=== PATIENT | female | born 1955 | race Caucasian/White ===

== ENCOUNTER 2019-07-24 05:55 | Day surgery (SDC) | payer MEDICARE, MEDICAID ==
[~2019-07-24] VITALS: Ht 157.5 cm; Wt 69.9 kg
[2019-07-24] VITALS (7 sets, daily range): BP systolic 119–165; BP diastolic 52–72
[2019-07-24] MEDS ORDERED: Avastin 10mg Inj IVITRE ONE (06:00)
[2019-07-24] MEDS ORDERED: Pred Forte 1% Opth Susp 1ml LEFT EYE SCH (06:00)
[2019-07-24] MEDS ORDERED: Phenylephrine 2.5% Op 2ml Soln ONE (06:08)
[2019-07-24] MEDS ORDERED: Cyclopentolate 1% Opth Sol 2ml ONE (06:08)
[2019-07-24] MEDS ORDERED: Flurbiprofen 0.03% Opth Sol 2.5ml ONE (06:08)
[2019-07-24] MEDS ORDERED: Vigamox Opth Soln 3ml ONE (06:09)
[2019-07-24] MEDS: Vigamox Opth Soln 3ml LEFT EYE SCH ×3 (06:28→06:59)
[2019-07-24] MEDS: Phenylephrine 2.5% Op 2ml Soln LEFT EYE SCH ×3 (06:28→06:58)
[2019-07-24] MEDS: Flurbiprofen 0.03% Opth Sol 2.5ml LEFT EYE SCH ×3 (06:28→06:59)
[2019-07-24] MEDS: Cyclopentolate 1% Opth Sol 2ml LEFT EYE SCH ×3 (06:28→06:59)
[2019-07-24] MEDS ORDERED: Midazolam 2mg/2ml Inj ONE (07:00)
[2019-07-24] MEDS ORDERED: ATORVASTATIN CA80 MG ORAL (07:06)
[2019-07-24] MEDS ORDERED: CATAPRES0.1 MG ORAL (07:06)
[2019-07-24] MEDS ORDERED: RENVELA0.8 GM ORAL (07:06)
[2019-07-24] MEDS ORDERED: FUROSEMIDE40 MG ORAL (07:06)
[2019-07-24] MEDS ORDERED: CLOPIDOGREL75 MG ORAL (07:06)
[2019-07-24] MEDS ORDERED: CARVEDILOL6.25 MG ORAL (07:06)
[2019-07-24] MEDS ORDERED: PANTOPRAZOLE SO40 MG ORAL (07:06)
[2019-07-24] MEDS ORDERED: LAMICTAL25 MG ORAL (07:06)
[2019-07-24] MEDS ORDERED: LEVETIRACETAM500 MG ORAL (07:06)
[2019-07-24] MEDS ORDERED: MIDODRINE HCL5 MG ORAL (07:06)
[2019-07-24] MEDS ORDERED: CALCIUM ACETAT667 MG PO (07:06)
[2019-07-24] MEDS ORDERED: EPINEPHrine 1mg/1ml Amp ONE (07:12)
[2019-07-24] MEDS ORDERED: Dexamethasone 4mg/ml vial ONE (07:13)
[2019-07-24] MEDS ORDERED: BSS 500ml btl ONE (07:13)
[2019-07-24] MEDS ORDERED: Lidocaine 2% MPF 5ml Vial INJ ONE (07:13)
[2019-07-24] MEDS ORDERED: Kenalog-40 1ml Vial ONE (07:13)
[2019-07-24] MEDS ORDERED: Kenalog-10 5ml Inj ONE (07:13)
[2019-07-24] MEDS ORDERED: BSS 15ml BTL ONE (07:13)
[2019-07-24] MEDS ORDERED: Pred Forte 1% Opth Susp 1ml ONE (07:13)
[2019-07-24] MEDS ORDERED: Povidone-Iodine 5% opth solution ONE (07:14)
[2019-07-24] MEDS ORDERED: Sodium Hyaluronate 10 mg/ml 0.85ml ONE (07:14)
[2019-07-24] MEDS ORDERED: Bupivacaine 0.75% 30ml vial INJ ONE (07:14)
[2019-07-24] MEDS ORDERED: Tetracaine 0.5% Opth 4ml Soln ONE (07:14)
[2019-07-24] MEDS ORDERED: LR 1000ml 1,000 ML IVLG SCH (07:17)
--- NOTE | 2019-07-24 07:25 | Anethesia Preoperative Eval ---
Anesthesia Pre-op PMH/ROS General Date of Evaluation: Jul 24, 2019 Time of Evaluation: 07:24 Anesthesiologist: Goyo ASA Score: ASA 3 Mallampati Score Class I : Soft palate, uvula, fauces, pillars visible Class II: Soft palate, uvula, fauces visible Class III: Soft palate, base of uvula visible Class IV: Only hard plate visible Mallampati Classification: Class II Surgeon: Erika Diagnosis: Vitreous Hemorrhage, OS Surgical Procedure: Vitrectomy OS Anesthesia History: none Family History: no anesthesia problems Allergies: Coded Allergies: No Known Allergies (Unverified , 07/21/19) Medications: see eMAR Patient NPO?: Yes Past Medical History Cardiovascular: Reports: HTN, CAD - CABGX3, other - HL Gastrointestinal/Genitourinary: Reports: GERD, ESRD - Dialysis Neurologic/Psychiatric: Reports: CVA, other - Seizures Endocrine: Reports: DM HEENT: Reports: cataract (L), cataract (R), glaucoma Hematology/Immune: Reports: anemia PSxH Narrative: CABGX3 Anesthesia Pre-op Phys. Exam Physician Exam Last Vital Signs Date Time Temp Pulse Resp B/P (MAP) Pulse Ox O2 Delivery O2 Flow Rate FiO2 07/24/19 07:11 Room Air 07/24/19 06:54 96.9 74 18 165/71 99 Constitutional: NAD Neurologic: CN 2-12 intact Cardiovascular: RRR Respiratory: CTA Gastrointestinal: S/NT/ND Airway Exam Mallampati Score: Class II MO: limited ROM: limited Teeth: missing Anesthesia Pre-op A/P Labs Chemistry Test 07/24/19 06:15 Potassium Level 4.6 MMOL/L (3.5-5.1) Risk Assessment & Plan Assessment: ASA 3 Plan: GA Status Change Before Surgery: No Placido Nance MD Jul 24, 2019 07:25
[2019-07-24] MEDS ORDERED: Hyaluronidase 150 units/ml vial ONE (07:27)
[2019-07-24] MEDS ORDERED: Midazolam 2mg/2ml Inj IVP PRN (07:30)
[2019-07-24] MEDS ORDERED: Labetalol 5mg/ml 20ml vial IV PRN (07:30)
[2019-07-24] MEDS ORDERED: HYDROcodone/Acetamin 5/325 tab ORAL PRN ×2 (07:30→07:45)
[2019-07-24] MEDS ORDERED: DiphenhydrAMINE 50mg/ml Inj IVP PRN (07:30)
[2019-07-24] MEDS ORDERED: Metoclopramide 10mg/2ml Inj IVP PRN (07:30)
[2019-07-24] MEDS ORDERED: LORazepam Inj 2mg/ml 1ml IV PRN (07:30)
[2019-07-24] MEDS ORDERED: Meperidine 50mg/ml Inj(FOR RIGORS ONLY) IVP PRN (07:30)
[2019-07-24] MEDS ORDERED: Propofol 200mg/20ml IV ONE (07:30)
[2019-07-24] MEDS ORDERED: Ketorolac 30mg Inj IV PRN ×2 (07:30)
[2019-07-24] MEDS ORDERED: oxyCODONE HCL/Acetaminophen 5/325mg ORAL PRN (07:30)
[2019-07-24] MEDS ORDERED: Atropine Sulfate 0.4mg/ml inj IVP PRN (07:30)
[2019-07-24] MEDS ORDERED: HYDROcodone/Acetamin 7.5/325 tab ORAL PRN (07:30)
[2019-07-24] MEDS ORDERED: NS Irrig 1000ml ONE (07:30)
[2019-07-24] MEDS ORDERED: Hydromorphone 0.5mg/0.5ml inj IVP PRN (07:30)
[2019-07-24] MEDS ORDERED: Sterile Water Irrig 1000ml IRRIG ONE (07:30)
[2019-07-24] MEDS ORDERED: Lidocaine 1% MPF 10mg/ml 5ml ONE (07:30)
[2019-07-24] MEDS ORDERED: fentaNYL 100 mcg/2 mL IV PRN (07:30)
--- NOTE | 2019-07-24 07:36 | Pre-Procedure Note/Attestation ---
Pre-Procedure Note/Attestation Complete Prior to Procedure Planned Procedure: left Procedure Narrative: PPV, membrane peel, endolaser, Avastin OS Indications for Procedure Pre-Operative Diagnosis: Non-clearing vitreous hemorrhage LEFT eye Attestation I attest that I discussed the nature of the procedure; its benefits; risks and complications; and alternatives (and the risks and benefits of such alternatives ), prior to the procedure, with the patient (or the patient's legal billing representative). I attest that, if there was a reasonable possibility of needing a blood transfusion, the patient (or the patient's legal billing representative) was given the [facility] standardized written summary, pursuant to the [place] Blood Safety Act ([place] Health and Safety Code # 1645, as amended). I attest that I re-evaluated the patient just prior to the surgery and that there has been no change in the patient's H&P, except as documented below: Sheldon James MD Jul 24, 2019 07:36
--- NOTE | 2019-07-24 07:49 | Immediate Post-Op Evaluation ---
Immediate Post-Op Evalulation Immediate Post-Op Evalulation Procedure: Vitrectomy OS Date of Evaluation: Jul 24, 2019 Time of Evaluation: 08:43 IV Fluids: 100 NS Blood Products: 0 Estimated Blood Loss: 1 Urinary Output: 0 Blood Pressure Systolic: 163 Blood Pressure Diastolic: 70 Pulse Rate: 75 Respiratory Rate: 16 O2 Sat by Pulse Oximetry: 100 Temperature (Fahrenheit): 97.3 Pain Score (1-10): 1 Nausea: No Vomiting: No Complications 0 Patient Status: awake, reacts, patent, none Hydration Status: adequate Placido Nance MD Jul 24, 2019 07:49
--- NOTE | 2019-07-24 07:50 | 48 Hour Post Anesthesia Eval ---
Post Anesthesia Evaluation Procedure: Vitrectomy OS Date of Evaluation: Jul 24, 2019 Time of Evaluation: 11:56 Blood Pressure Systolic: 171 0: 71 Pulse Rate: 74 Respiratory Rate: 18 Temperature (Fahrenheit): 98 O2 Sat by Pulse Oximetry: 100 Airway: patent Nausea: No Vomiting: No Pain Intensity: 1 Hydration Status: adequate Cardiopulmonary Status: Stable Mental Status/LOC: patient returned to baseline Follow-up Care/Observations: 0 Post-Anesthesia Complications: 0 Follow-up care needed: ready to discharge Placido Nance MD Jul 24, 2019 07:49
[2019-07-24] MEDS ORDERED: Polysporin Opth Oint 3.5gm ONE (07:57)
--- NOTE | 2019-07-24 08:38 | Brief Operative Note ---
Immediate Post Operative Note Operative Note Chief Complaint: Red clouds in vision Left eye Pre-op Diagnosis: Non-clearing vitreous hemorrhage LEFT eye Procedure: PPV, Endolaser 2148 spots, Avastin 1.25mg LEFT eye Post-op Diagnosis: same as pre-op Surgeon: sebas Anesthesiologist: peewee Anesthesia: MAC Specimen: none Complications: none Condition: stable Fluids: per anesthesia Estimated Blood Loss: none Drains: none Implant(s) used?: No Sheldon James MD Jul 24, 2019 08:38
--- NOTE | 2019-07-24 14:45 | Operative Note - Dictated ---
DATE OF OPERATION: 07/24/2019 PREOPERATIVE DIAGNOSIS: Nonclearing vitreous hemorrhage, left eye. POSTOPERATIVE DIAGNOSIS: Nonclearing vitreous hemorrhage, left eye. PROCEDURES: 1. Pars plana vitrectomy. 2. Membrane elevation and removal. 3. Endolaser. 4. Avastin injection, left eye. SURGEON: Sheldon James M.D. TRAIN CONTROL ELECTRONIC TECHNICIAN: None. ANESTHESIA: Location with sedation, Dr. Nance. JUSTIFICATION FOR SURGERY: This is a 64-year-old lady with a long history of diabetes and severe diabetic retinopathy developed a nonclearing vitreous hemorrhage. She was admitted for surgery. BRIEF NOTE: The patient was brought to the operative room, placed on OR table in supine position. After a time-out was performed and agreed upon by the staff and initial monitoring tissue ensured by Dr. Nance, retrobulbar and Van Lint blocks were given in the standard way. After the blocks taken effect, she was prepped and draped in normal manner. A lid speculum inserted into the left eye. Using a 23-gauge trocar system, cannulas were placed in all except infranasal quadrant. Infusion secured inferotemporally. Vitrectomy was begun posterior to the lens taking care to avoid contact. A central core vitrectomy was done followed by peripheral vitrectomy leaving a small vitreous skirt. A dense posterior hyaloid was engaged at 2 separate sites, 1 just nasal to the optic nerve and another along the inferotemporal arcade. The hyaloid was gently elevated and dissected cleanly from along the points of detachment mainly nasally and temporally. No problems were encountered. Pool of blood on the surface of the retina was gently aspirated clearly. The endolaser was then brought to the eye and a power of 0.3 abarca, duration 0.2 seconds, a total of 2148 lesions were applied in a broad band extending from posterior to the equator out to near the pars plana 360 degrees. No problems were encountered. Scleral depression was done. No peripheral breaks, tears, or detachments were seen. The two superior cannulas were removed and the wounds closed with 8-0 Vicryl suture with a single throw the knots. The infusion line was disconnected and Avastin 1.25 mg was injected through the infusion cannula. The eye was reinflated and this cannula was also removed, being similarly closed with 8-0 Vicryl suture. Subconjunctival Decadron and gentamicin were injected inferiorly and topical Maxitrol drops, ofloxacin drops, atropine drops, and Maxitrol ointments were instilled. The eye was patched and shielded and the patient taken to recovery in excellent condition. There were no complications. Sheldon James M.D. DR: NAKITA JOB#: [id number] CC: Sheldon James M.D.; Fax#: [phone]
== END 2019-07-24 10:10 | disposition home or self-care (01) ==
LOC: SUR 05:55
DX: H43.12 Vitreous hemorrhage, left eye (principal); Z95.1 Presence of aortocoronary bypass graft; I13.11 Hypertensive heart and chronic kidney disease without heart failure, with stage 5 chronic kidney disease, or end stage renal disease; E11.22 Type 2 diabetes mellitus with diabetic chronic kidney disease; N18.6 End stage renal disease; Z99.2 Dependence on renal dialysis
CPT/HCPCS: 36415; 67039; 84132; J0171; J1100; J2250; J2704; J3470; J3490; J7030; J9035; 94003; 94150